=== PATIENT | male | born 1970 | race Asian ===

== ENCOUNTER 2024-12-27 06:19 | Emergency (ER) | payer BC ==
[~2024-12-27] VITALS: Ht 181.6 cm; Wt 81.6 kg
[2024-12-27] MEDS ORDERED: IBUP-1955 PO (08:25)
[2024-12-27] MEDS ORDERED: HYDR-4303 PO (08:25)
[2024-12-27] MEDS ORDERED: KETOROLAC TROMETHAMINE 15 MG/ML VIAL ONE (08:29)
[2024-12-27] MEDS ORDERED: HYDROCODONE/APAP 5/325MG TABLET ONE (08:29)
[2024-12-27] MEDS ORDERED: CYCLOBENZAPRINE 10 MG TABLET ONE (08:30)
[2024-12-27] MEDS: KETOROLAC TROMETHAMINE 15 MG/ML VIAL IM ONE (08:39)
[2024-12-27] MEDS: HYDROCODONE/APAP 5/325MG TABLET PO ONE (08:40)
[2024-12-27] MEDS: CYCLOBENZAPRINE 10 MG TABLET PO ONE (08:40)
[2024-12-27 09:54] VITALS: BP 135/84; TEMP 98.6; O2SAT 98
== END 2024-12-27 09:57 | disposition home or self-care (01) ==
LOC: ER 06:19
DX: M25.531 Pain in right wrist (principal); I10 Essential (primary) hypertension; E78.5 Hyperlipidemia, unspecified; E11.9 Type 2 diabetes mellitus without complications
CPT/HCPCS: 99285; 93971; 96372; 73110; J1885